=== PATIENT | female | born 1960 | race Caucasian/White ===

== ENCOUNTER → 2019-06-27 | Outpatient (CLI) | payer MEDICARE, SELFPAY | PROVIDERS: Family Provider Nurse Practitioner Family; Visit Provider Internal Medicine Medical Oncology | DX: Z45.2 Encounter for adjustment and management of vascular access device (principal) | CPT/HCPCS: 96523; J1642 ==

== ENCOUNTER 2019-08-25 10:19 | Outpatient (CLI) | payer MEDICARE, SELFPAY | END 2019-08-25 10:20 | disposition home or self-care (01) | PROVIDERS: Family Provider Nurse Practitioner Family; PCP Nurse Practitioner Family; Visit Provider Internal Medicine Medical Oncology | DX: Z45.2 Encounter for adjustment and management of vascular access device (principal) | CPT/HCPCS: 36591 ==

== ENCOUNTER 2019-12-24 09:46 | Outpatient (CLI) | payer MEDICARE, SELFPAY | END 2019-12-24 09:47 | disposition home or self-care (01) | LOC: ONCMED 09:49 | PROVIDERS: PCP Nurse Practitioner Family; Visit Provider Internal Medicine Medical Oncology | DX: Z45.2 Encounter for adjustment and management of vascular access device (principal) | CPT/HCPCS: 96523 ==

== ENCOUNTER 2020-02-26 09:47 | Outpatient (CLI) | payer MEDICARE, SELFPAY ==
[2020-02-26 10:34] LABS: Basophils % 0.6 %; Eosinophils # 0.2 10^3/uL (0.0-0.8); Eosinophils % 3.3 %; Hematocrit 44.2 % (37.0-47.0); Hemoglobin 14.2 g/dL (11.5-15.3); Lymphocytes # 1.7 10^3/uL (0.8-4.8); Lymphocytes % 25.1 %; Mean Corpuscular HGB Conc 32.1 g/dL (30.0-36.0); Mean Corpuscular Hemoglobin 29.2 pg (28.0-34.0); Mean Corpuscular Volume 90.8 fL (81-99); Mean Platelet Volume 11.2 fL (7.4-10.4); Monocytes # 0.3 10^3/uL (0.2-0.9); Monocytes % 4.9 %; Neutrophils # 4.41 10^3/uL (1.8-7.7); Nucleated Red Blood Cells % 0 %; Platelet Count 118 10^3/cmm (130-400); Red Blood Count 4.87 10^6/uL (4.1-5.3); Red Cell Distribution Width 13.8 % (12.1-15.1); White Blood Count 6.7 10^3/uL (4.0-10.0)
[2020-02-26 11:04] LABS: Carcinoembryonic Antigen 2.1 ng/mL (0.0-4.7)
[2020-02-26 11:15] LABS: Alanine Aminotransferase 20 U/L (0-33); Alkaline Phosphatase 80 IU/L (35-105); Anion Gap 15.1 (5-19); Aspartate Amino Transferase 28 U/L (0-32); Blood Urea Nitrogen 21 mg/dL (8-23); Calcium 8.9 mg/dL (8.5-10.5); Carbon Dioxide 23 mmol/L (22-29); Chloride 106 mmol/L (98-107); Globulin 3.3 g/dL (1.3-4.6); Glomerular Filtration Rate 101.6 mL/min (90-130); Glucose 118 mg/dL (65-115); Osmolality Calculated 288 mOsm/kg (285-295); Potassium 4.1 mmol/L (3.5-5.1); Sodium 140 mmol/L (136-145); Total Bilirubin 1.1 mg/dL (0.15-1.2); Total Protein 7.3 g/dL (6.6-8.7)
--- NOTE | 2020-03-01 06:42 | ONC FU_ITS ---
Dr. Vásquez Patient Follow-Up Note Patient: Priya Ocampo Unit #: [id number]: 1960 Dicatated By: Mikael Vásquez M.D.Date of Visit:Feb 26, 2020 Onc Med Follow-up/Prog Note Chief Complaint: Colon cancer. History of Present Illness: This is a 58 year-old woman with grade 2 invasive adenocarcinoma of the ascending colon, presumed to be stage IIIB (pT3, pN2a, Mx). She has hypertension and type 2 diabetes. 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 She had presented with iron deficiency anemia. In January 2014 she underwent GI evaluation with upper endoscopy and colonoscopy. The upper endoscopy was normal. Colonoscopy showed a nearly obstructing circumferential mass in the ascending colon. Other findings were limited to diverticulosis in the sigmoid and descending colon and a single sessile polyp in the sigmoid colon. Biopsy of the mass showed invasive adenocarcinoma. The polyp was hyperplastic. On 02/18/2014 she underwent exploratory laparotomy with right hemicolectomy. Grossly there was no obvious adenopathy or other evidence of metastatic disease. Pathology showed moderately differentiated (grade 2/4) invasive adenocarcinoma measuring 3.5 cm in greatest dimension. The tumor was noted to infiltrate through the muscularis propria into pericolonic adipose tissue. There was lymphovascular invasion identified. There was involvement in 6 of 18 lymph nodes. The report also indicates that there were many nodular areas within the mesenteric fat which were over run by neoplasm. These were suspicious for additional lymph node involvement, but they were void of any residual lymph node tissue, and it was not possible to distinguish whether these were anthony versus satellite metastases. The report further indicates that many of the lymph nodes contained well formed granulomas. She had further evaluation with PET/CT on 02/28/14. That study was suspicious for metastatic implant adenopathy within the upper abdomen and probable metastatic lymphadenopathy within the mediastinal, hilar, and left internal mammary lymph nodes. The largest of these was a 1.6 cm celiac lymph node with SUV 2.7. The mediastinal nodes were smaller, in the 1 cm range, with maximum SUV 2.06. There were mildly hypermetabolic lymph nodes noted within the inguinal regions bilaterally, none of which were enlarged. A 12 mm nodule within the right upper lobe showed no FDG avidity, but it was felt to be suspicious. At that point she sought further treatment through the [facility]. She was seen there by Dr. Hugo Sadler. A repeat PET/CT on 04/01/14 showed worsened mediastinal adenopathy with SUV at that point up to 8 as well as evidence of new rib lesions. Fine-needle aspiration biopsy of the right supraclavicular lymph node was negative for malignancy. She then underwent cervical mediastinoscopy with mediastinal lymph node biopsy on 04/10/2014. Pathology showed noncaseating granulomatous and anthrasilicotic nodules, but again no malignancy. Based on those findings, it was felt that she most likely had sarcoidosis in association with stage IIIB colon cancer (pT3, pN2a, Mx). She was advised to proceed with adjuvant chemotherapy with modified FOLFOX. She received her 1st cycle of treatment on 04/28/14. As of 09/29/14 she had completed her 12th cycle of chemotherapy. She tolerated the treatment pretty well other than she did experience significant neuropathy with the oxaliplatin. It was omitted with cycle 3 because of the neuropathy. It was reintroduced at a reduced dosage with cycle 4, held again with cycles 8 and 9, but included with cycles 10 thru 12. She had a follow-up visit at [facility] in May 2015. Repeat PET/CT showed numerous enlarged FDG avid mediastinal and hilar lymph nodes, the largest in the subcarinal region measuring 16 mm with SUV 7.84. A superior mesenteric FDG avid node measured 9 mm with SUV 5.10. An 8 mm left external iliac chain node that SUV 4.12 and bilateral inguinal nodes measuring up to 7 mm showed SUV 4.50 on the right and 2.98 on the left. There were scattered bilateral subcentimeter groundglass nodules most prominent in the right upper lobe were not significantly changed. There did appear to be progression of the anthony disease compared to previous studies, but it was uncertain whether it represented metastatic disease versus sarcoidosis. She was advised to have a follow-up study in October and possible biopsy depending on the findings. In the meantime, she also had surveillance colonoscopy with Dr. Fernando in March 2015, and that apparently showed no abnormal findings. Repeat CT chest/abdomen/pelvis at the [facility] on 11/22/2015 showed stable subcentimeter mediastinal lymph nodes and resolution of the previously noted 8 mm right lower lobe pulmonary nodule. There was mild hepatomegaly, and the spleen was noted to be enlarged, measuring up to 16.5 cm. Subcentimeter perigastric, para-aortic, left external iliac, and right inguinal lymph nodes also were stable. There was no evidence of recurrence/progression of the colon cancer. She continued observation/expectant management. In May 2017 she underwent lithotripsy for an obstructing right distal ureteral stone. The CT did show associated moderate hydronephrosis. There was no evidence for metastatic disease. Surveillance CT of the chest on 11/12/2017 showed multiple fissural nodules which appeared similar to prior studies. Also noted was bilateral fissural thickening. There were no suspicious pulmonary nodules noted. There was redemonstration of multiple prominent mediastinal lymph nodes, grossly unchanged compared to April 2014. Also noted were multiple prominent vessels supraclavicular and bilateral internal mammary lymph nodes, the largest measuring up to 6 mm. These were grossly unchanged. The abdomen/pelvis showed a nodular contour of the liver with the main portal vein dilated up to 20 mm. There is no hepatic mass noted. The spleen was noted to be enlarged with multiple hypoattenuated foci within the splenic parenchyma. These appeared to be slowly enlarging over time. A 7 mm nonobstructing stone was noted within the left lower pole of the renal pelvis. Overall, the findings were consistent with hepatic cirrhosis and splenomegaly with slowly enlarging hypoattenuating lesions within the spleen consistent with sarcoidosis or metastatic disease. Surveillance CT scans at the [facility] on 12/24/2018 again reported morphologic changes of chronic liver disease. Scattered subcentimeter ill defined indeterminate hypodensities were noted in the liver. The spleen was enlarged measuring up to 16.8 cm. Multiple splenic hypodense lesions were noted to have increased in size and possibly increased in number compared to the prior exam. Multiple enlarged upper abdominal lymph nodes were unchanged compared to multiple prior exams, the largest measuring up to 2.7 x 1.7 cm. Also noted were unchanged subcentimeter cardiophrenic and mesenteric lymph nodes. There were no pathologically enlarged pelvic lymph nodes. There were unchanged prominent subcentimeter bilateral iliac lymph nodes. She continued on observation/expectant management for the colon cancer. She is seen for a scheduled visit. She has been feeling good generally. She has good energy and activity tolerance. ECOG score is 0. Her appetite is good. She has no fever or night sweats. She has no shortness of breath, cough, or chest pain. She currently has no GI or complaints. She has some arthritis pain, mainly in her hands. She also has some pain in her left hip. She has no focal neurologic symptoms. Medications: Cholecalciferol 1 Capsule (of 32241 Units) Oral q 7 days, Glimepiride 1 (2 mg) Tablet Oral daily, glipiZIDE-metFORMIN HCl 1 Tablet (of 5-500 mg) Oral b.i.d., Jardiance 1 Tablet (of 25 mg) Oral daily, Levothyroxine Sodium 1 (75 mcg) Tablet Oral daily, Metoprolol Succinate ER 1 (50 mg) Tablet SR 24 HR Oral daily, Trulicity 1.5 mg Subcutaneous q 7 days Allergies: SULFA Review of Systems: Constitutional - She has been feeling good. Her energy is good most of the time. She has normal activity without restrictions. Her appetite is good and her weight is down a few pounds. No fever, night sweats, or hot flashes. ECOG score is 0, ENMT - No sinus congestion/drainage. No mouth sores. No sore throat or difficulty swallowing, Hematologic/Lymphatic - No abnormal bruising or bleeding, Respiratory - No shortness of breath. No cough. No pleuritic pain or hemoptysis, Cardiovascular - No angina pain. No palpitations, Gastrointestinal - No nausea or vomiting. No heartburn or acid reflux. No diarrhea or constipation. No blood in the stool or black stools, Genitourinary (F) - No dysuria or hematuria. No urinary frequency. No urgency or incontinence, Musculoskeletal - She has arthritis pain in her hands, specifically her thumb and her little finger. She also has left hip pain, Integumentary - No skin complications, Neurologic - No headache or dizziness. No numbness or tingling. No other focal neurologic symptoms, Psychiatric - No anxiety or depression. No insomnia. Vital Signs: Performed on Feb 26, 2020 11:21 Height - 66.00 in Weight - 189.8 lbs (LOW) BSA - 1.96 sq.m BMI - 30.63 (HIGH) Temperature - 98.5 F Pulse - 89 /min Respiration - 18 /min BP - 150/65 mm(hg) (HIGH) O2 Sat - 98 % Pain - 0 Physical Examination: Constitutional - She looks good generally, Eyes - Sclerae nonicteric. Conjunctivae clear, ENMT - No lesions noted in the oral cavity, Hematologic/Lymphatic - No cervical, clavicular, or axillary adenopathy, Respiratory - Lungs are clear with good air movement bilaterally, Cardiovascular - Heart rhythm is regular. There is a II/ systolic murmur. There is no gallop or rub noted, Abdomen - Soft. Liver and spleen are not enlarged. There is no abdominal mass or ascites noted and there is no inguinal adenopathy, Extremities - No edema. Dorsalis pedis pulses are palpable bilaterally, Neurologic - No focal neurologic deficits noted. Lab/Imaging: Test performed on Feb 26, 2020 10:10 Sodium 140 mmol/L Potassium 4.1 mmol/L Chloride 106 mmol/L CO2 23 mmol/L Anion Gap 15.1 BUN 21 mg/dL Creatinine 0.6 mg/dL Cr Clearance (Est) 126.2100 mL/min eGFR 101.6 mL/min Glucose 118 mg/dL Calcium 8.9 mg/dL Protein, Total 7.3 g/dL Albumin 4.0 g/dL Globulin 3.3 g/dL Bilirubin, Total 1.1 mg/dL ALT (SGPT) 20 U/L AST (SGOT) 28 U/L Alkaline Phosphatase 80 IU/L WBC 6.7 10 3/uL RBC 4.87 10 6/uL HGB 14.2 g/dL HCT 44.2 % MCV 90.8 fL MCH 29.2 pg MCHC 32.1 g/dL RDW 13.8 % Platelet Count 118 10 3/cmm MPV 11.2 fL Neutrophils 4.41 10 3/uL Lymphocytes 1.7 10 3/uL Monocytes 0.3 10 3/uL Eosinophils 0.2 10 3/uL Basophils 0.0 10 3/uL Neutrophil % 66.0 % Lymphocyte % 25.1 % Monocyte % 4.9 % Eosinophil % 3.3 % Basophils % 0.6 % NRBC % 0 % CEA 2.1 ng/mL Test performed on Jan 20, 2020 09:30 T4, Free 12.9 ng/dL TSH 0.73 uU/mL Cholesterol, Total 187 mg/dL C-Reactive Protein (mg/L) 3.1 mg/L Vitamin D (25-Hydroxy) 29 ng/mL HDL Cholesterol 55 mg/dL LDL Cholesterol 109 mg/dL VLDL Cholesterol 132 mg/dL Triglycerides 119 mg/dL Manual Lymphocytes 28.2 % Manual Monocytes 5.1 % Manual Eosinophils 2.9 % Manual Basophils 0.4 % Impression: 1. The patient has grade 2 invasive adenocarcinoma of the ascending colon, presumed to be stage IIIB (pT3, pN2a, Mx). She underwent right hemicolectomy on 02/18/2014. She was found to have multiple areas of FDG positive lymphadenopathy by PET/CT with cervical mediastinoscopy/mediastinal lymph node biopsy showing noncaseating granulomas consistent with sarcoidosis. Metastatic involvement was not entirely excluded. 2. She was given adjuvant chemotherapy with 12 cycles of modified FOLFOX, which she completed on 09/29/14. She did experience significant peripheral neuropathy with the oxaliplatin following the second cycle. It was subsequently administered at a reduced dosage, and omitted with cycles 4, 8, and 9. She tolerated the treatment well otherwise. 3. A follow-up PET scan in May 2015 did show some progression of FDG avid lymphadenopathy, but these remained stable on subsequent followup CT scans, most recently in November 2018. 4. The abdomen/pelvis CT of October 2017 did show evidence of liver cirrhosis with associated splenomegaly. Also noted were slowly enlarging hypoattenuated foci within the spleen which were felt to be consistent with sarcoidosis or metastatic disease. Her other medical illnesses include: 5. Hypertension. 6. Type II diabetes. 7. 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 8. She has a history of nephrolithiasis. She had a kidney stone removed in December 2015 and she underwent extracorporeal shockwave lithotripsy for a right distal ureteral stone and placement of ureteral stent in May 2017. She has remained on observation/expectant management following completion of the chemotherapy. Overall she has been doing well clinically with no obvious recurrence of the colon cancer. Her CT scans from October 2017 had shown evidence of cirrhosis of the liver as well as splenomegaly with slowly enlarging hypoattenuating lesions within the spleen. Her repeat CT scans in November 2018 had shown again reported morphologic changes of chronic liver disease and with splenomegaly and further increase in size of the multiple splenic hypodense lesions. At that point I did request referral to a motor operator. She has otherwise been doing well clinically. Thus far there has been no evidence of recurrence of the colon cancer. Plan: She remains on observation/expectant management for the colon cancer. She will be scheduling a follow-up visit at the [facility] and she also will be having a surveillance colonoscopy this April. I will see her again in 1 year. Signed By: Mikael Vásquez M.D. <<Signature on File>>
== END 2020-02-26 09:48 | disposition home or self-care (01) ==
LOC: ONCMED 09:49
PROVIDERS: PCP Nurse Practitioner Family; Visit Provider Internal Medicine Medical Oncology
DX: Z08 Encounter for follow-up examination after completed treatment for malignant neoplasm (principal); Z85.038 Personal history of other malignant neoplasm of large intestine; D73.2 Chronic congestive splenomegaly; Z92.21 Personal history of antineoplastic chemotherapy; I10 Essential (primary) hypertension; E11.9 Type 2 diabetes mellitus without complications; Z86.69 Personal history of other diseases of the nervous system and sense organs; Z87.442 Personal history of urinary calculi
CPT/HCPCS: 36591; 80053; 82378; 85025; G0463

== ENCOUNTER 2020-03-31 09:38 | Outpatient (CLI) | payer MEDICARE, SELFPAY | END 2020-03-31 09:39 | disposition home or self-care (01) | LOC: ONCMED 09:46 | PROVIDERS: PCP Nurse Practitioner Family; Visit Provider Internal Medicine Medical Oncology | DX: Z45.2 Encounter for adjustment and management of vascular access device (principal) | CPT/HCPCS: 96523 ==

== ENCOUNTER 2020-05-11 06:25 | Outpatient (CLI) | payer MEDICARE, SELFPAY | END 2020-05-11 06:26 | disposition home or self-care (01) | LOC: ONCMED 06:26 | PROVIDERS: PCP Nurse Practitioner Family; Visit Provider Internal Medicine Medical Oncology | DX: Z45.2 Encounter for adjustment and management of vascular access device (principal) | CPT/HCPCS: 96523 ==

== ENCOUNTER 2020-07-30 09:32 | Outpatient (CLI) | payer MEDICARE, SELFPAY | END 2020-07-30 09:33 | disposition home or self-care (01) | LOC: ONCMED 09:34 | PROVIDERS: PCP Nurse Practitioner Family; Visit Provider Internal Medicine Medical Oncology | DX: Z45.2 Encounter for adjustment and management of vascular access device (principal) | CPT/HCPCS: 96523 ==

== ENCOUNTER 2020-08-30 13:51 | Outpatient (CLI) | payer MEDICARE, SELFPAY | END 2020-08-30 13:52 | disposition home or self-care (01) | PROVIDERS: PCP Nurse Practitioner Family; Visit Provider Internal Medicine Medical Oncology | DX: Z45.2 Encounter for adjustment and management of vascular access device (principal) | CPT/HCPCS: 96523 ==

== ENCOUNTER 2020-09-30 09:32 | Outpatient (CLI) | payer MEDICARE, SELFPAY | END 2020-09-30 09:33 | disposition home or self-care (01) | LOC: ONCMED 09:34 | PROVIDERS: PCP Nurse Practitioner Family; Visit Provider Internal Medicine Medical Oncology | DX: Z45.2 Encounter for adjustment and management of vascular access device (principal) | CPT/HCPCS: 96523 ==

== ENCOUNTER 2020-11-02 09:40 | Outpatient (CLI) | payer MEDICARE, SELFPAY | END 2020-11-02 09:41 | disposition home or self-care (01) | LOC: ONCMED 09:42 | PROVIDERS: PCP Nurse Practitioner Family; Visit Provider Internal Medicine Medical Oncology | DX: Z45.2 Encounter for adjustment and management of vascular access device (principal) | CPT/HCPCS: 96523 ==

== ENCOUNTER 2020-12-24 09:03 | Outpatient (CLI) | payer MEDICARE, SELFPAY | END 2020-12-24 09:04 | disposition home or self-care (01) | LOC: ONCMED 09:05 | PROVIDERS: PCP Nurse Practitioner Family; Visit Provider Internal Medicine Medical Oncology | DX: Z45.2 Encounter for adjustment and management of vascular access device (principal) | CPT/HCPCS: 96523 ==

== ENCOUNTER 2021-03-08 11:19 | Outpatient (CLI) | payer MEDICARE, SELFPAY ==
[2021-03-08 12:09] LABS: Basophils % 0.8 %; Eosinophils # 0.2 10^3/uL (0.0-0.8); Eosinophils % 3.2 %; Hematocrit 42.3 % (37.0-47.0); Hemoglobin 13.3 g/dL (11.5-15.3); Lymphocytes # 1.4 10^3/uL (0.8-4.8); Lymphocytes % 25.5 %; Mean Corpuscular HGB Conc 31.4 g/dL (30.0-36.0); Mean Corpuscular Hemoglobin 28.8 pg (28.0-34.0); Mean Corpuscular Volume 91.6 fl (81-99); Monocytes # 0.3 10^3/uL (0.2-0.9); Monocytes % 4.9 %; Neutrophils # 3.49 10^3/uL (1.8-7.7); Neutrophils % 65.4 %; Nucleated Red Blood Cells % 0 %; Platelet Count 106 10^3/cmm (130-400); Red Blood Count 4.62 10^6/uL (4.1-5.3); Red Cell Distribution Width 14.1 % (12.1-15.1); White Blood Count 5.3 10^3/uL (4.0-10.0)
[2021-03-08 12:34] LABS: Alanine Aminotransferase 15 U/L (0-33); Albumin Level 3.6 g/dL (3.5-5.2); Alkaline Phosphatase 73 IU/L (35-105); Anion Gap 15.8 (5-19); Aspartate Amino Transferase 26 U/L (0-32); Blood Urea Nitrogen 12 mg/dL (8-23); Calcium 8.6 mg/dL (8.5-10.5); Carbon Dioxide 24 mmol/L (22-29); Chloride 105 mmol/L (98-107); Globulin 2.9 g/dL (1.3-4.6); Glucose 204 mg/dL (65-115); Osmolality Calculated 298 mOsm/kg (285-295); Potassium 3.8 mmol/L (3.5-5.1); Sodium 141 mmol/L (136-145); Total Bilirubin 0.9 mg/dL (0.15-1.2); Total Protein 6.5 g/dL (6.6-8.7)
--- NOTE | 2021-03-08 18:07 | ONC FU_ITS ---
Dr. Vásquez Patient Follow-Up Note Patient: Priya Ocampo Unit #: [id number]: [id number] Dicatated By: Mikael Vásquez M.D.Date of Visit:Mar 08, 2021 Onc Med Follow-up/Prog Note Chief Complaint: Colon cancer. History of Present Illness: This is a 60 year-old woman with grade 2 invasive adenocarcinoma of the ascending colon, presumed to be stage IIIB (pT3, pN2a, Mx). She has hypertension and type 2 diabetes. 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 She had presented with iron deficiency anemia. In January 2014 she underwent GI evaluation with upper endoscopy and colonoscopy. The upper endoscopy was normal. Colonoscopy showed a nearly obstructing circumferential mass in the ascending colon. Other findings were limited to diverticulosis in the sigmoid and descending colon and a single sessile polyp in the sigmoid colon. Biopsy of the mass showed invasive adenocarcinoma. The polyp was hyperplastic. On 02/18/2014 she underwent exploratory laparotomy with right hemicolectomy. Grossly there was no obvious adenopathy or other evidence of metastatic disease. Pathology showed moderately differentiated (grade 2/4) invasive adenocarcinoma measuring 3.5 cm in greatest dimension. The tumor was noted to infiltrate through the muscularis propria into pericolonic adipose tissue. There was lymphovascular invasion identified. There was involvement in 6 of 18 lymph nodes. The report also indicates that there were many nodular areas within the mesenteric fat which were over run by neoplasm. These were suspicious for additional lymph node involvement, but they were void of any residual lymph node tissue, and it was not possible to distinguish whether these were anthony versus satellite metastases. The report further indicates that many of the lymph nodes contained well formed granulomas. She had further evaluation with PET/CT on 02/28/14. That study was suspicious for metastatic implant adenopathy within the upper abdomen and probable metastatic lymphadenopathy within the mediastinal, hilar, and left internal mammary lymph nodes. The largest of these was a 1.6 cm celiac lymph node with SUV 2.7. The mediastinal nodes were smaller, in the 1 cm range, with maximum SUV 2.06. There were mildly hypermetabolic lymph nodes noted within the inguinal regions bilaterally, none of which were enlarged. A 12 mm nodule within the right upper lobe showed no FDG avidity, but it was felt to be suspicious. At that point she sought further treatment through the [facility]. She was seen there by Dr. Hugo Sadler. A repeat PET/CT on 04/01/14 showed worsened mediastinal adenopathy with SUV at that point up to 8 as well as evidence of new rib lesions. Fine-needle aspiration biopsy of the right supraclavicular lymph node was negative for malignancy. She then underwent cervical mediastinoscopy with mediastinal lymph node biopsy on 04/10/2014. Pathology showed noncaseating granulomatous and anthrasilicotic nodules, but again no malignancy. Based on those findings, it was felt that she most likely had sarcoidosis in association with stage IIIB colon cancer (pT3, pN2a, Mx). She was advised to proceed with adjuvant chemotherapy with modified FOLFOX. She received her 1st cycle of treatment on 04/28/14. As of 09/29/14 she had completed her 12th cycle of chemotherapy. She tolerated the treatment pretty well other than she did experience significant neuropathy with the oxaliplatin. It was omitted with cycle 3 because of the neuropathy. It was reintroduced at a reduced dosage with cycle 4, held again with cycles 8 and 9, but included with cycles 10 thru 12. She had a follow-up visit at [facility] in May 2015. Repeat PET/CT showed numerous enlarged FDG avid mediastinal and hilar lymph nodes, the largest in the subcarinal region measuring 16 mm with SUV 7.84. A superior mesenteric FDG avid node measured 9 mm with SUV 5.10. An 8 mm left external iliac chain node that SUV 4.12 and bilateral inguinal nodes measuring up to 7 mm showed SUV 4.50 on the right and 2.98 on the left. There were scattered bilateral subcentimeter groundglass nodules most prominent in the right upper lobe were not significantly changed. There did appear to be progression of the anthony disease compared to previous studies, but it was uncertain whether it represented metastatic disease versus sarcoidosis. She was advised to have a follow-up study in October and possible biopsy depending on the findings. In the meantime, she also had surveillance colonoscopy with Dr. Fernando in March 2015, and that apparently showed no abnormal findings. Repeat CT chest/abdomen/pelvis at the [facility] on 11/22/2015 showed stable subcentimeter mediastinal lymph nodes and resolution of the previously noted 8 mm right lower lobe pulmonary nodule. There was mild hepatomegaly, and the spleen was noted to be enlarged, measuring up to 16.5 cm. Subcentimeter perigastric, para-aortic, left external iliac, and right inguinal lymph nodes also were stable. There was no evidence of recurrence/progression of the colon cancer. She continued observation/expectant management. In May 2017 she underwent lithotripsy for an obstructing right distal ureteral stone. The CT did show associated moderate hydronephrosis. There was no evidence for metastatic disease. Surveillance CT of the chest on 11/12/2017 showed multiple fissural nodules which appeared similar to prior studies. Also noted was bilateral fissural thickening. There were no suspicious pulmonary nodules noted. There was redemonstration of multiple prominent mediastinal lymph nodes, grossly unchanged compared to April 2014. Also noted were multiple prominent vessels supraclavicular and bilateral internal mammary lymph nodes, the largest measuring up to 6 mm. These were grossly unchanged. The abdomen/pelvis showed a nodular contour of the liver with the main portal vein dilated up to 20 mm. There is no hepatic mass noted. The spleen was noted to be enlarged with multiple hypoattenuated foci within the splenic parenchyma. These appeared to be slowly enlarging over time. A 7 mm nonobstructing stone was noted within the left lower pole of the renal pelvis. Overall, the findings were consistent with hepatic cirrhosis and splenomegaly with slowly enlarging hypoattenuating lesions within the spleen consistent with sarcoidosis or metastatic disease. Surveillance CT scans at the [facility] on 12/24/2018 again reported morphologic changes of chronic liver disease. Scattered subcentimeter ill defined indeterminate hypodensities were noted in the liver. The spleen was enlarged measuring up to 16.8 cm. Multiple splenic hypodense lesions were noted to have increased in size and possibly increased in number compared to the prior exam. Multiple enlarged upper abdominal lymph nodes were unchanged compared to multiple prior exams, the largest measuring up to 2.7 x 1.7 cm. Also noted were unchanged subcentimeter cardiophrenic and mesenteric lymph nodes. There were no pathologically enlarged pelvic lymph nodes. There were unchanged prominent subcentimeter bilateral iliac lymph nodes. She continued on observation/expectant management for the colon cancer. She had surveillance colonoscopy in April 2020. I did not receive that report. She apparently just had some small polyps, and she was recommended to have another colonoscopy in 5 years. She is seen for a scheduled visit. She has been feeling good generally. She has good energy and activity tolerance. ECOG score is 0. Appetite also has been good. She has no fever or night sweats. She has not had sore mouth or throat. She has no shortness of breath, cough, or chest pain. She has no GI complaints. She thinks she may have another kidney stone, she recently noticed a little blood in her urine. She has had no other complaints. She has a little bit of pain in her right shoulder and in her hips, but that is not new. She does not complain of headache or dizziness. She has no numbness/paresthesia or other focal neurologic symptoms. Medications: Cholecalciferol 1 Capsule ([place] 35262 Units) Oral q 7 days, Glimepiride 1 (2 mg) Tablet Oral daily, glipiZIDE-metFORMIN HCl 1 Tablet (of 5-500 mg) Oral b.i.d., Jardiance 1 Tablet (of 25 mg) Oral daily, Levothyroxine Sodium 1 (75 mcg) Tablet Oral daily, Metoprolol Succinate ER 1 (50 mg) Tablet SR 24 HR Oral daily, Trulicity 1.5 mg Subcutaneous q 7 days Allergies: SULFA Vital Signs: Performed on Mar 08, 2021 13:40 Height - 66.00 in Weight - 190 lbs (HIGH) BSA - 1.96 sq.m BMI - 30.67 (HIGH) Temperature - 98.3 F (LOW) Pulse - 85 /min Respiration - 18 /min BP - 169/72 mm(hg) (HIGH) O2 Sat - 96 % Pain - 0 Fatigue - 0 Physical Examination: Constitutional - She looks good generally, Eyes - Sclerae nonicteric. Conjunctivae clear, ENMT - No lesions noted in the oral cavity, Hematologic/Lymphatic - No cervical, clavicular, or axillary adenopathy, Respiratory - Lungs are clear with good air movement bilaterally, Cardiovascular - Heart rhythm is regular. There is a II/ systolic murmur. There is no gallop or rub noted, Abdomen - Soft. Liver is not enlarged. The spleen is not palpable. There is no abdominal mass or ascites noted and there is no inguinal adenopathy, Extremities - No edema, Neurologic - No focal neurologic deficits noted. Lab/Imaging: Test performed on Mar 08, 2021 11:37 Sodium 141 mmol/L Potassium 3.8 mmol/L Chloride 105 mmol/L CO2 24 mmol/L Anion Gap 15.8 BUN 12 mg/dL Creatinine 0.5 mg/dL Cr Clearance (Est) 149.5300 mL/min eGFR 125.0 mL/min Glucose 204 mg/dL Osmolality - Calculated 298 mOsm/kg Calcium 8.6 mg/dL Protein, Total 6.5 g/dL Albumin 3.6 g/dL Globulin 2.9 g/dL Bilirubin, Total 0.9 mg/dL ALT (SGPT) 15 U/L AST (SGOT) 26 U/L Alkaline Phosphatase 73 IU/L WBC 5.3 10 3/uL RBC 4.62 10 6/uL HGB 13.3 g/dL HCT 42.3 % MCV 91.6 fl MCH 28.8 pg MCHC 31.4 g/dL RDW 14.1 % Platelet Count 106 10 3/cmm MPV 11.0 fL Neutrophils 3.49 10 3/uL Lymphocytes 1.4 10 3/uL Monocytes 0.3 10 3/uL Eosinophils 0.2 10 3/uL Basophils 0.0 10 3/uL Neutrophil % 65.4 % Lymphocyte % 25.5 % Monocyte % 4.9 % Eosinophil % 3.2 % Basophils % 0.8 % NRBC % 0 % CEA 2.0 ng/mL Problem List: 1. Grade 2 invasive adenocarcinoma of the ascending colon, presumed to be stage IIIB (pT3, pN2a, Mx). She underwent right hemicolectomy on 02/18/2014. 2. She was found to have multiple areas of FDG positive lymphadenopathy by PET/CT with cervical mediastinoscopy/mediastinal lymph node biopsy showing noncaseating granulomas consistent with sarcoidosis. Metastatic involvement was not entirely excluded. 3. Her abdomen/pelvis CT of October 2017 showed evidence of liver cirrhosis with associated splenomegaly. Also noted were slowly enlarging hypoattenuated foci within the spleen which were felt to be consistent with sarcoidosis or metastatic disease. 4. Hypertension. 5. Type II diabetes. 6. 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 7. She has a history of nephrolithiasis. She had a kidney stone removed in December 2015 and she underwent extracorporeal shockwave lithotripsy for a right distal ureteral stone and placement of ureteral stent in May 2017. Problems Addressed with this Encounter and Plan: 1. Patient with grade 2 invasive adenocarcinoma of the ascending colon, presumed to be stage IIIB (pT3, pN2a, Mx). She underwent right hemicolectomy on 02/18/2014. She was found to have multiple areas of FDG positive lymphadenopathy by PET/CT with cervical mediastinoscopy/mediastinal lymph node biopsy showing noncaseating granulomas consistent with sarcoidosis. Metastatic involvement was not entirely excluded. She was given adjuvant chemotherapy with 12 cycles of modified FOLFOX, which she completed on 09/29/14. She did experience significant peripheral neuropathy with the oxaliplatin following the second cycle. It was subsequently administered at a reduced dosage, and omitted with cycles 4, 8, and 9. She tolerated the treatment well otherwise. A follow-up PET scan in May 2015 did show some progression of FDG avid lymphadenopathy, but these remained stable on subsequent followup CT scans, most recently in November 2018. Thus far during follow-up her clinical status and her CEA have remained stable. Overall, she appears to be doing well with no evidence of recurrence of the colon cancer. She remains on expectant management. I will see her again in [address] abdomen/pelvis in October 2017 showed evidence of liver cirrhosis with associated splenomegaly. Also noted were slowly enlarging hypoattenuated foci within the spleen which were felt to be consistent with sarcoidosis or metastatic disease. She did see a inspector screen printing. She apparently declined liver biopsy and she did not schedule follow-up. A cause for liver cirrhosis has not been determined. I think she should have follow-up CT imaging, particularly in view of the splenic lesions, and that will be scheduled now. She will have further evaluation as indicated. 3. She has had small pulmonary nodules by CT scan I also will repeat her chest CT for ongoing surveillance. Signed By: Mikael Vásquez M.D. <<Signature on File>>
== END 2021-03-08 11:20 | disposition home or self-care (01) ==
LOC: ONCMED 11:22
PROVIDERS: PCP Nurse Practitioner Family; Visit Provider Internal Medicine Medical Oncology
DX: Z08 Encounter for follow-up examination after completed treatment for malignant neoplasm (principal); Z85.038 Personal history of other malignant neoplasm of large intestine; R91.8 Other nonspecific abnormal finding of lung field; Z92.21 Personal history of antineoplastic chemotherapy; Z79.899 Other long term (current) drug therapy; Z79.84 Long term (current) use of oral hypoglycemic drugs
CPT/HCPCS: 36591; 80053; 82378; 85025; 99214

== ENCOUNTER 2021-05-17 08:49 | Outpatient (CLI) | payer MEDICARE, SELFPAY | END 2021-05-17 08:50 | disposition home or self-care (01) | LOC: ONCMED 08:51 | PROVIDERS: PCP Nurse Practitioner Family; Visit Provider Internal Medicine Medical Oncology | DX: Z45.2 Encounter for adjustment and management of vascular access device (principal) | CPT/HCPCS: 96523 ==

== ENCOUNTER 2021-08-02 13:28 | Outpatient (CLI) | payer MEDICARE, MEDICAID, SELFPAY | END 2021-08-02 13:29 | disposition home or self-care (01) | LOC: ONCMED 13:33 | PROVIDERS: PCP Nurse Practitioner Family; Visit Provider Internal Medicine Medical Oncology | DX: Z45.2 Encounter for adjustment and management of vascular access device (principal) | CPT/HCPCS: 96523 ==

== ENCOUNTER 2021-09-08 10:07 | Outpatient (CLI) | payer MEDICARE, MEDICAID, SELFPAY | END 2021-09-08 10:08 | disposition home or self-care (01) | PROVIDERS: PCP Nurse Practitioner Family; Visit Provider Internal Medicine Medical Oncology | DX: Z45.2 Encounter for adjustment and management of vascular access device (principal) | CPT/HCPCS: 96523 ==

== ENCOUNTER 2021-11-07 13:47 | Oncology outpatient (recurring) (ONCR) | payer MEDICARE, MEDICAID, SELFPAY ==
[2021-11-07 14:00] VITALS: BP 138/65; PULSE 90; RESP 18; TEMP 37.3; O2SAT 96
== END 2021-11-29 23:59 | disposition home or self-care (01) ==
LOC: ONCMED 13:48
PROVIDERS: PCP Nurse Practitioner Family; Visit Provider Internal Medicine Medical Oncology
DX: C18.2 Malignant neoplasm of ascending colon (principal)
CPT/HCPCS: 96523

== ENCOUNTER 2021-12-13 10:21 | Oncology outpatient (recurring) (ONCR) | payer MEDICARE, MEDICAID, SELFPAY | END 2021-12-29 23:59 | disposition home or self-care (01) | PROVIDERS: PCP Nurse Practitioner Family; Visit Provider Internal Medicine Medical Oncology | DX: C18.2 Malignant neoplasm of ascending colon (principal) | CPT/HCPCS: 96523 ==

== ENCOUNTER 2022-01-04 13:07 | Outpatient (CLI) | payer MEDICARE, MEDICAID, SELFPAY ==
--- NOTE | 2022-01-04 14:00 | XR_ITS ---
WS: [id number] KUB, AP view, 01/04/2022 Clinical Data: History of Kidney Stones Comparison: KUB, 05/21/2017. Findings: There are calcifications overlying both kidneys. There are surgical lidia overlying the inferior po le of the right kidney. There are calcifications in the right side of the true pelvis. There are clips in the right upper quadrant from a cholecystectomy. No evidence of obstruction is see n. XR/XR KUB [id number] Impression: 1. Probable bilateral renal calculi. 2. Probable phleboliths in the true pelvis.
== END 2022-01-04 13:08 | disposition home or self-care (01) ==
LOC: RAD 13:08
PROVIDERS: PCP Nurse Practitioner Family; Visit Provider Nurse Practitioner Family
DX: Z87.442 Personal history of urinary calculi (principal); N20.9 Urinary calculus, unspecified; R31.0 Gross hematuria
CPT/HCPCS: 74018; 81003; 87086; 99203

== ENCOUNTER 2022-01-18 13:32 | Oncology outpatient (recurring) (ONCR) | payer MEDICARE, MEDICAID, SELFPAY | END 2022-01-29 23:59 | disposition home or self-care (01) | PROVIDERS: PCP Nurse Practitioner Family; Visit Provider Internal Medicine Medical Oncology | DX: Z45.2 Encounter for adjustment and management of vascular access device (principal); Z95.828 Presence of other vascular implants and grafts; R31.0 Gross hematuria | CPT/HCPCS: 88112; 96523 ==

== ENCOUNTER 2022-02-27 09:47 | Outpatient (CLI) | payer MEDICARE, MEDICAID, SELFPAY ==
[2022-02-27 10:44] LABS: Blood Urea Nitrogen 14 mg/dL (8-23); Glomerular Filtration Rate 72.4 mL/min (90-130)
[2022-02-27] MEDS: iohexol 350 mg/mL 100 mL Btl IV (10:51)
--- NOTE | 2022-02-27 12:00 | CT_ITS ---
WS: [id number] CT ABDOMEN AND PELVIS WITH AND WITHOUT CONTRAST HISTORY: UROLITHIASIS TECHNIQUE: Unenhanced 5 mm axial imaging first performed through the abdomen. Post contrast imaging t hrough the abdomen and pelvis. Oral contrast has not been provided. Sagittal and coronal reformats a re submitted. All CT scans at [facility] use at least one of these dose optimization techniqu es: automated exposure control; mA and/or kV adjustment per patient size (includes targeted exams whe re dose is matched to clinical indication); or iterative reconstruction. CONTRAST: Omnipaque 350; 95 mL IV. DLP: 3428.56 mGy.cm COMPARISON: 05/15/2017 Lung bases are clear. Mildly enlarged heart. Normal size RIGHT kidney. No renal calcifications or obstruction. No renal mass. No filling defects w ithin the uroepithelial system. Normal size LEFT kidney. Numerous nonobstructing calcifications within the renal pelvis. The largest measures 8.6 mm in the lower pole. There is adjacent cortical thinning and scarring. No solid mass. N o uroepithelial lesion. There is an extrarenal pelvis similar to the prior studies. Only partial opac ification of the LEFT ureter. Nodular small liver. Surface of the liver is very irregular and lobulated. No bile duct dilatation. M ildly prominent portal vein. Prior cholecystectomy. Dilated common bile duct at 15 mm. Spleen is enla rged measuring 14.1 cm in length. There are multiple low-attenuation nodules throughout the spleen. T hese range in size from a few millimeters up to 22 mm. On the delayed imaging these completely fill-i n. No adrenal mass. Atrophied pancreas. Ventral abdominal wall fat-containing hernia. No GI tract obstruction. Anastomotic sutures near the h epatic flexure with no obstruction. No recurrent mass identified. Appendix is been removed. No ascite s or adenopathy. Minimally distended urinary bladder. Prior hysterectomy. Advanced degenerative disc disease at L5-S1. No osteoblastic or osteolytic lesions. CT/CT abdomen pelvis wo/w [id number] IMPRESSION: 1. No renal mass. 2. LEFT renal calculi, nonobstructing. Largest measures 8.6 mm in the lower po le. 3. Cortical thinning and scarring lower pole LEFT kidney. 4. Ileocolic anastomosis near the hepatic flexure stable. No obstruction. 5. Abdominal wall hernia containing fat only. 6. Cirrhotic appearance of the liver. 7. Numerous nodules throughout the spleen seen on portal phase imaging. Differ ential includes metastatic disease and sarcoidosis. Patient does have a history of sarcoidosis and colon cancer. As these lesions completely fill-in on delaye d imaging. Favor sarcoidosis. 8. Hepatosplenomegaly is probably due to portal venous hypertension and cirrho sis. Hepatosplenomegaly can also be seen with sarcoidosis.
== END 2022-02-27 09:48 | disposition home or self-care (01) ==
LOC: RAD 09:48
PROVIDERS: PCP Nurse Practitioner Family; Visit Provider Urology
DX: N20.0 Calculus of kidney (principal); R31.0 Gross hematuria; Z86.2 Personal history of diseases of the blood and blood-forming organs and certain disorders involving the immune mechanism
CPT/HCPCS: 52000; 74178; 81003; 82565; 84520; 99214

== ENCOUNTER 2022-03-29 12:43 | Oncology outpatient (recurring) (ONCR) | payer MEDICARE, SELFPAY | END 2022-03-31 23:59 | disposition home or self-care (01) | LOC: ONCMED 12:43 | PROVIDERS: PCP Family Medicine; Visit Provider Internal Medicine Medical Oncology | DX: Z45.2 Encounter for adjustment and management of vascular access device (principal) | CPT/HCPCS: 96523 ==

== ENCOUNTER 2022-05-05 08:57 | Oncology outpatient (recurring) (ONCR) | payer MEDICARE, SELFPAY | END 2022-05-31 23:59 | disposition home or self-care (01) | PROVIDERS: PCP Family Medicine; Visit Provider Internal Medicine Medical Oncology | DX: Z45.2 Encounter for adjustment and management of vascular access device (principal) | CPT/HCPCS: 96523 ==

== ENCOUNTER 2022-06-30 09:30 | Oncology outpatient (recurring) (ONCR) | payer MEDICARE, MEDICAID, SELFPAY | END 2022-07-01 23:59 | disposition home or self-care (01) | PROVIDERS: PCP Family Medicine; Visit Provider Internal Medicine Medical Oncology | DX: Z45.2 Encounter for adjustment and management of vascular access device (principal); Z95.828 Presence of other vascular implants and grafts | CPT/HCPCS: 96523 ==

== ENCOUNTER 2022-07-28 09:33 | Oncology outpatient (recurring) (ONCR) | payer MEDICARE, MEDICAID, SELFPAY | END 2022-08-01 23:59 | disposition home or self-care (01) | PROVIDERS: PCP Family Medicine; Visit Provider Internal Medicine Medical Oncology | DX: Z45.2 Encounter for adjustment and management of vascular access device (principal); Z95.828 Presence of other vascular implants and grafts | CPT/HCPCS: 96523 ==

== ENCOUNTER 2022-09-22 09:29 | Oncology outpatient (recurring) (ONCR) | payer MEDICARE, MEDICAID, SELFPAY ==
[2022-09-22 09:53] VITALS: BP 124/68; PULSE 83; RESP 16; TEMP 36.9; O2SAT 98
== END 2022-09-29 23:59 | disposition home or self-care (01) ==
LOC: ONCMED 09:30
PROVIDERS: PCP Family Medicine; Visit Provider Internal Medicine Medical Oncology
DX: Z45.2 Encounter for adjustment and management of vascular access device (principal); Z95.828 Presence of other vascular implants and grafts
CPT/HCPCS: 96523

== ENCOUNTER 2022-10-20 08:29 | Oncology outpatient (recurring) (ONCR) | payer MEDICARE, SELFPAY ==
[2022-10-20 08:49] VITALS: BP 133/70; PULSE 85; TEMP 37.1; O2SAT 99
== END 2022-10-29 23:59 | disposition home or self-care (01) ==
PROVIDERS: PCP Family Medicine; Visit Provider Internal Medicine Medical Oncology
DX: Z45.2 Encounter for adjustment and management of vascular access device (principal)
CPT/HCPCS: 96523

== ENCOUNTER 2022-11-20 08:59 | Oncology outpatient (recurring) (ONCR) | payer MEDICARE, SELFPAY ==
[2022-11-20 09:31] VITALS: BP 156/80; PULSE 84; RESP 18; TEMP 36.8; O2SAT 98
== END 2022-11-29 23:59 | disposition home or self-care (01) ==
PROVIDERS: PCP Family Medicine; Visit Provider Internal Medicine Medical Oncology
DX: Z45.2 Encounter for adjustment and management of vascular access device (principal)
CPT/HCPCS: 96523; J1642

== ENCOUNTER 2022-12-25 08:35 | Oncology outpatient (recurring) (ONCR) | payer MEDICARE, SELFPAY ==
[2022-12-25 08:58] VITALS: BP 145/73; PULSE 95; RESP 18; TEMP 37.1; O2SAT 97
== END 2022-12-29 23:59 | disposition home or self-care (01) ==
PROVIDERS: PCP Family Medicine; Visit Provider Internal Medicine Medical Oncology
DX: Z45.2 Encounter for adjustment and management of vascular access device (principal)
CPT/HCPCS: 96523; J1642

== ENCOUNTER 2023-01-22 08:24 | Oncology outpatient (recurring) (ONCR) | payer MEDICARE, SELFPAY ==
[2023-01-22 08:32] VITALS: BP 152/73; PULSE 91; RESP 18; TEMP 36.6; O2SAT 96
== END 2023-01-29 23:59 | disposition home or self-care (01) ==
PROVIDERS: PCP Family Medicine; Visit Provider Internal Medicine Medical Oncology
DX: Z45.2 Encounter for adjustment and management of vascular access device (principal); Z95.828 Presence of other vascular implants and grafts
CPT/HCPCS: 96523; J1642

== ENCOUNTER 2023-02-19 10:40 | Oncology outpatient (recurring) (ONCR) | payer MEDICARE, SELFPAY ==
[2023-02-19 11:24] VITALS: BP 123/60; PULSE 80; TEMP 36.9
== END 2023-03-01 23:59 | disposition home or self-care (01) ==
PROVIDERS: PCP Family Medicine; Visit Provider Internal Medicine Medical Oncology
DX: Z45.2 Encounter for adjustment and management of vascular access device (principal)
CPT/HCPCS: 96523; J1642

== ENCOUNTER 2023-03-30 08:27 | Oncology outpatient (recurring) (ONCR) | payer MEDICARE, OTHER, SELFPAY | END 2023-03-31 23:59 | disposition home or self-care (01) | PROVIDERS: PCP Family Medicine; Visit Provider Internal Medicine Medical Oncology | DX: Z45.2 Encounter for adjustment and management of vascular access device (principal) | CPT/HCPCS: 96523; J1642 ==

== ENCOUNTER 2023-05-02 09:51 | Oncology outpatient (recurring) (ONCR) | payer MEDICARE, OTHER, SELFPAY ==
[2023-05-02 10:16] VITALS: BP 119/68; PULSE 88; RESP 16; TEMP 36.9; O2SAT 98
== END 2023-05-31 23:59 | disposition home or self-care (01) ==
PROVIDERS: PCP Family Medicine; Visit Provider Internal Medicine Medical Oncology
DX: Z45.2 Encounter for adjustment and management of vascular access device (principal); Z95.828 Presence of other vascular implants and grafts
CPT/HCPCS: 96523; J1642

== ENCOUNTER 2023-06-06 09:00 | Oncology outpatient (recurring) (ONCR) | payer MEDICARE, OTHER, SELFPAY ==
[2023-06-06 09:25] VITALS: BP 114/72; PULSE 80; RESP 16; TEMP 35.9; O2SAT 97
== END 2023-07-01 23:59 | disposition home or self-care (01) ==
PROVIDERS: PCP Family Medicine; Visit Provider Internal Medicine Medical Oncology
DX: Z45.2 Encounter for adjustment and management of vascular access device (principal)
CPT/HCPCS: 96523; J1642

== ENCOUNTER 2023-07-04 12:51 | Oncology outpatient (recurring) (ONCR) | payer MEDICARE, OTHER, SELFPAY | END 2023-08-01 23:59 | disposition home or self-care (01) | PROVIDERS: PCP Family Medicine; Visit Provider Internal Medicine Medical Oncology | DX: Z45.2 Encounter for adjustment and management of vascular access device (principal) | CPT/HCPCS: 96523; J1642 ==

== ENCOUNTER 2023-08-07 12:35 | Oncology outpatient (recurring) (ONCR) | payer MEDICARE, OTHER, SELFPAY | END 2023-08-30 23:59 | disposition home or self-care (01) | LOC: ONCMED 12:35 | PROVIDERS: PCP Family Medicine; Visit Provider Internal Medicine Medical Oncology | DX: Z45.2 Encounter for adjustment and management of vascular access device (principal) | CPT/HCPCS: 96523; J1642 ==

== ENCOUNTER 2023-09-06 13:28 | Oncology outpatient (recurring) (ONCR) | payer MEDICARE, OTHER, SELFPAY | END 2023-09-30 23:59 | disposition home or self-care (01) | PROVIDERS: PCP Family Medicine; Visit Provider Internal Medicine Medical Oncology | DX: Z45.2 Encounter for adjustment and management of vascular access device (principal) | CPT/HCPCS: 96523 ==

== ENCOUNTER 2023-10-04 12:50 | Oncology outpatient (recurring) (ONCR) | payer MEDICARE, OTHER, SELFPAY | END 2023-10-30 23:59 | disposition home or self-care (01) | LOC: ONCMED 12:50 | PROVIDERS: PCP Family Medicine; Visit Provider Internal Medicine Medical Oncology | DX: Z45.2 Encounter for adjustment and management of vascular access device (principal) | CPT/HCPCS: 96523 ==

== ENCOUNTER 2023-10-31 09:52 | Oncology outpatient (recurring) (ONCR) | payer MEDICARE, OTHER, SELFPAY | END 2023-11-30 23:59 | disposition home or self-care (01) | PROVIDERS: PCP Family Medicine; Visit Provider Internal Medicine Medical Oncology | DX: Z45.2 Encounter for adjustment and management of vascular access device (principal) | CPT/HCPCS: 96523 ==

== ENCOUNTER 2023-12-11 13:56 | Oncology outpatient (recurring) (ONCR) | payer MEDICARE, OTHER, SELFPAY | END 2023-12-30 23:59 | disposition home or self-care (01) | PROVIDERS: PCP Family Medicine; Visit Provider Internal Medicine Medical Oncology | DX: Z45.2 Encounter for adjustment and management of vascular access device (principal) ==

== ENCOUNTER 2024-01-09 13:05 | Oncology outpatient (recurring) (ONCR) | payer MEDICARE, OTHER, SELFPAY | END 2024-01-30 23:59 | disposition home or self-care (01) | LOC: ONCMED 13:05 | PROVIDERS: PCP Family Medicine; Visit Provider Internal Medicine Medical Oncology | DX: Z45.2 Encounter for adjustment and management of vascular access device (principal) | CPT/HCPCS: 96523 ==

== ENCOUNTER 2024-02-13 12:53 | Oncology outpatient (recurring) (ONCR) | payer MEDICARE, OTHER, SELFPAY | END 2024-03-01 23:59 | disposition home or self-care (01) | PROVIDERS: PCP Family Medicine; Visit Provider Internal Medicine Medical Oncology | DX: Z45.2 Encounter for adjustment and management of vascular access device (principal) ==

== ENCOUNTER 2024-04-09 13:44 | Oncology outpatient (recurring) (ONCR) | payer MEDICARE, OTHER, SELFPAY | END 2024-05-01 23:59 | disposition home or self-care (01) | PROVIDERS: PCP Family Medicine; Visit Provider Internal Medicine Medical Oncology | DX: Z45.2 Encounter for adjustment and management of vascular access device (principal) ==

== ENCOUNTER 2024-05-08 13:15 | Oncology outpatient (recurring) (ONCR) | payer MEDICARE, SELFPAY | END 2024-05-31 23:59 | disposition home or self-care (01) | PROVIDERS: PCP Family Medicine; Visit Provider Internal Medicine Medical Oncology | DX: Z45.2 Encounter for adjustment and management of vascular access device (principal) | CPT/HCPCS: 96523 ==

== ENCOUNTER 2024-06-04 12:31 | Oncology outpatient (recurring) (ONCR) | payer MEDICARE, SELFPAY | END 2024-07-01 23:59 | disposition home or self-care (01) | PROVIDERS: PCP Family Medicine; Visit Provider Internal Medicine Medical Oncology | DX: Z45.2 Encounter for adjustment and management of vascular access device (principal) | CPT/HCPCS: 96523 ==

== ENCOUNTER 2024-07-03 09:20 | Oncology outpatient (recurring) (ONCR) | payer MEDICARE, OTHER, SELFPAY | END 2024-08-01 23:59 | disposition home or self-care (01) | PROVIDERS: PCP Family Medicine; Visit Provider Internal Medicine Medical Oncology | DX: Z45.2 Encounter for adjustment and management of vascular access device (principal) ==

== ENCOUNTER 2024-08-11 08:17 | Oncology outpatient (recurring) (ONCR) | payer MEDICARE, OTHER, SELFPAY | END 2024-08-29 23:59 | disposition home or self-care (01) | PROVIDERS: PCP Family Medicine; Visit Provider Internal Medicine Medical Oncology | DX: Z45.2 Encounter for adjustment and management of vascular access device (principal) | CPT/HCPCS: 96523 ==

== ENCOUNTER 2024-09-30 13:42 | Oncology outpatient (recurring) (ONCR) | payer MEDICARE, OTHER, SELFPAY | END 2024-10-29 23:59 | disposition home or self-care (01) | PROVIDERS: PCP Family Medicine; Visit Provider Internal Medicine Medical Oncology | DX: Z45.2 Encounter for adjustment and management of vascular access device (principal) | CPT/HCPCS: 96523 ==

== ENCOUNTER 2024-11-03 08:12 | Oncology outpatient (recurring) (ONCR) | payer MEDICARE, OTHER, SELFPAY | END 2024-11-29 23:59 | disposition home or self-care (01) | PROVIDERS: PCP Family Medicine; Visit Provider Internal Medicine Medical Oncology | DX: Z45.2 Encounter for adjustment and management of vascular access device (principal) | CPT/HCPCS: 96523 ==

== ENCOUNTER 2024-12-15 08:14 | Oncology outpatient (recurring) (ONCR) | payer MEDICARE, OTHER, SELFPAY | END 2024-12-29 23:59 | disposition home or self-care (01) | PROVIDERS: PCP Family Medicine; Visit Provider Internal Medicine Medical Oncology | DX: Z45.2 Encounter for adjustment and management of vascular access device (principal) | CPT/HCPCS: 96523 ==

== ENCOUNTER 2025-01-26 08:22 | Oncology outpatient (recurring) (ONCR) | payer MEDICARE, OTHER, SELFPAY | END 2025-01-29 23:59 | disposition home or self-care (01) | PROVIDERS: PCP Family Medicine; Visit Provider Internal Medicine Medical Oncology | DX: Z45.2 Encounter for adjustment and management of vascular access device (principal); Z95.828 Presence of other vascular implants and grafts | CPT/HCPCS: 96523 ==

== ENCOUNTER 2025-03-03 07:52 | Oncology outpatient (recurring) (ONCR) | payer MEDICARE, OTHER, SELFPAY | END 2025-03-31 23:59 | disposition home or self-care (01) | PROVIDERS: PCP Family Medicine; Visit Provider Internal Medicine Medical Oncology | DX: Z45.2 Encounter for adjustment and management of vascular access device (principal); Z95.828 Presence of other vascular implants and grafts | CPT/HCPCS: 96523 ==

== ENCOUNTER 2025-04-13 07:45 | Oncology outpatient (recurring) (ONCR) | payer MEDICARE, OTHER, SELFPAY | END 2025-05-01 23:59 | disposition home or self-care (01) | PROVIDERS: PCP Family Medicine; Visit Provider Internal Medicine Medical Oncology | DX: Z45.2 Encounter for adjustment and management of vascular access device (principal); Z95.828 Presence of other vascular implants and grafts | CPT/HCPCS: 96523 ==

== ENCOUNTER 2025-05-18 08:43 | Oncology outpatient (recurring) (ONCR) | payer MEDICARE, OTHER, SELFPAY | END 2025-05-31 23:59 | disposition home or self-care (01) | PROVIDERS: PCP Family Medicine; Visit Provider Internal Medicine Medical Oncology | DX: Z45.2 Encounter for adjustment and management of vascular access device (principal); Z95.828 Presence of other vascular implants and grafts; Z53.9 Procedure and treatment not carried out, unspecified reason | CPT/HCPCS: 96523 ==

== ENCOUNTER 2025-06-22 08:39 | Oncology outpatient (recurring) (ONCR) | payer MEDICARE, OTHER, SELFPAY | END 2025-07-01 23:59 | disposition home or self-care (01) | PROVIDERS: PCP Family Medicine; Visit Provider Internal Medicine Medical Oncology | DX: Z45.2 Encounter for adjustment and management of vascular access device (principal); Z95.828 Presence of other vascular implants and grafts | CPT/HCPCS: 96523 ==